=== PATIENT | male | born 1985 | race Hispanic/Latino ===

== ENCOUNTER 2019-01-11 15:23 | Emergency (ER) | payer SELFPAY ==
[2019-01-11] MEDS ORDERED: methylPREDNISolone Sod Succ/PF 125 MG/2 ML VIAL ONE (17:25)
[2019-01-11] MEDS ORDERED: Metoclopramide HCl 10 MG/2 ML VIAL ONE (17:25)
[2019-01-11] MEDS ORDERED: Ketorolac Tromethamine 30 MG/ML VIAL ONE (17:25)
== END 2019-01-11 20:28 | disposition home or self-care (01) ==
LOC: ERS 15:23
DX: R51 Headache (principal); F17.210 Nicotine dependence, cigarettes, uncomplicated
CPT/HCPCS: 96365; 96375; J1885; J2765; J2930

== ENCOUNTER 2019-01-30 15:18 | Emergency (ER) | payer SELFPAY | END 2019-01-30 16:05 | disposition home or self-care (01) | LOC: ERS 15:18 | DX: K04.7 Periapical abscess without sinus (principal); F17.210 Nicotine dependence, cigarettes, uncomplicated | CPT/HCPCS: 99283 ==

== ENCOUNTER 2019-06-04 19:43 | Emergency (ER) | payer OTHER, SELFPAY ==
[2019-06-04] MEDS ORDERED: Dexamethasone 4 mg/ml Vial ONE (22:01)
== END 2019-06-04 22:06 | disposition home or self-care (01) ==
LOC: ERS 19:43
DX: J02.9 Acute pharyngitis, unspecified (principal); F17.210 Nicotine dependence, cigarettes, uncomplicated
CPT/HCPCS: 87081; 87430; 99283; J1100

== ENCOUNTER 2020-03-12 13:05 | Emergency (ER) | payer OTHER ==
[2020-03-12] MEDS ORDERED: methylPREDNISolone Sod Succ/PF 125 MG/2 ML VIAL ONE (13:36)
[2020-03-12] MEDS ORDERED: Famotidine/PF 20 mg/2ml Vial ONE (13:36)
== END 2020-03-12 15:26 | disposition home or self-care (01) ==
LOC: ERS 13:05
DX: T78.40XA Allergy, unspecified, initial encounter (principal); K13.0 Diseases of lips; F17.210 Nicotine dependence, cigarettes, uncomplicated
CPT/HCPCS: 96361; 96374; 96375; J2930; S0028